=== PATIENT | male | born 1955 | race American Indian/Alaskan Native ===

== ENCOUNTER → 2017-11-19 | Outpatient (CLI) | payer OTHER ==
--- NOTE | 2017-11-19 16:00 | MR ---
EXAMINATION TYPE: MR nishi/sis wo con DATE OF EXAM: 11/19/2017 COMPARISON: 05/07/2015 HISTORY: Neck and Low Back Pain TECHNIQUE: T1 and T2 axial and sagittal images of the lumbar spine are submitted. FINDINGS: There is no abnormal signal seen within the visualized spinal cord or paraspinal soft tissu es. At T12-L1 there is moderate degenerative disc disease. There is facet arthropathy. Mild bilateral for aminal encroachment. There is no canal stenosis or focal herniation. At L1-2 there is degenerative disc disease with hypertrophic change of the facets. Circumferential di sc bulging and mild bilateral foraminal encroachment appears stable. At L2-3 there is degenerative disc disease with more central and right paracentral broad-based disc b ulging. This is similar appearance to the prior exam with moderate effacement of thecal sac and mild central stenosis. Facet arthropathy is noted and there is mild bilateral foraminal encroachment. At L3-4 there is moderate degenerative disc disease with diffuse disc bulging, ligamentum flavum hype rtrophy and facet arthropathy result in moderate canal stenosis and bilateral foraminal encroachment. At L4-5 there is degenerative disc disease with broad-based central disc herniation, facet arthropath y and ligamentum flavum hypertrophy resulting in severe central stenosis which is similar to the prio r exam. There is severe bilateral foraminal encroachment greater on the left. At L5-S1 there is advanced facet arthropathy. There is no canal stenosis or disc herniation. Neural f oramina remain patent. Mild disc desiccation. IMPRESSION: 1. Multilevel degenerative disc disease and facet arthropathy resulting in multilevel canal stenosis with the most marked findings at L4-L5 resulting in severe foraminal encroachment and central stenosi s. Findings also result in multilevel foraminal encroachment. Findings are similar to the prior exam. EXAMINATION TYPE: MR almodovar/sis wo con DATE OF EXAM: 11/19/2017 COMPARISON: NONE HISTORY: Neck and Low Back Pain TECHNIQUE: T1 sagittal and coronal, T2 sagittal, and gradient echo axial views of the cervical spine are submitted. FINDINGS: Exam severely limited due to motion artifact. The cranial cervical junction is preserved. A rtifact limits assessment of the spinal cord. At C2-3 there is degenerative disc disease and facet ar thropathy greater on the left with moderate to severe left-sided foraminal encroachment. No significa nt right-sided foraminal encroachment. No disc herniation or canal stenosis. At C3-4 there is ligamentum flavum hypertrophy with posterior spondylosis and uncovertebral joint hyp ertrophy. Disc capped by spur noted and there is facet arthropathy with moderate to severe bilateral foraminal encroachment and mild central stenosis. At C4-5 there is degenerative disc disease with bilateral advanced facet arthropathy greater on the l eft. Cervical spondylosis and uncovertebral joint hypertrophy contribute to moderate to severe bilate ral foraminal encroachment. Very mild central disc bulging capped by spur with mild effacement of the richa sac but no central stenosis. At C5-6 there is severe degenerative disc disease with central disc bulging capped by spur. Uncoverte bral joint hypertrophy and facet arthropathy with moderate to severe bilateral foraminal encroachment and moderate central stenosis. At C6-7 there is severe degenerative disc disease with posterior spondylosis. Uncovertebral joint hyp ertrophy and facet arthropathy contribute to significant bilateral foraminal encroachment. Due to mot ion artifact assessment for canal stenosis is limited. At C7-T1 there is there is degenerative disc disease. Motion artifact particularly limits this level on the axial images. No obvious central stenosis. Assessment for herniation limited. Slight anterolis thesis of C7 on T1 noted on the sagittal images. Facet arthropathy noted and suspected foraminal encr oachment. IMPRESSION: 1. Exam limited due to motion artifact demonstrates multilevel degenerative disc disease and advance d facet arthropathy with foraminal encroachment virtually all levels as discussed above. 2. Disc bulging capped by spur and posterior spondylosis particularly noted at C3-4, C6-C7 and C5-C6. 3. Assessment spinal cord for abnormal signal limited due to motion artifact. No definite area of abn ormal signal seen given the limitation of the exam.
== END | disposition home or self-care (01) ==
LOC: RADMRIMAIN 14:49
PROVIDERS: ATTEND Orthopaedic Surgery Orthopaedic Surgery of the Spine
DX: M48.061 Spinal stenosis, lumbar region without neurogenic claudication (principal); M51.17 Intervertebral disc disorders with radiculopathy, lumbosacral region; M46.97 Unspecified inflammatory spondylopathy, lumbosacral region; M48.02 Spinal stenosis, cervical region; M50.13 Cervical disc disorder with radiculopathy, cervicothoracic region; M43.13 Spondylolisthesis, cervicothoracic region; M47.22 Other spondylosis with radiculopathy, cervical region; M46.93 Unspecified inflammatory spondylopathy, cervicothoracic region; F17.299 Nicotine dependence, other tobacco product, with unspecified nicotine-induced disorders
CPT/HCPCS: 72141; 72148

== ENCOUNTER → 2022-02-21 | Outpatient (CLI) | payer MEDICARE, OTHER ==
--- NOTE | 2022-02-21 10:39 | MR ---
EXAMINATION TYPE: MR Prostate wo/w con DATE OF EXAM: 02/21/2022 COMPARISON: None. IMAGE QUALITY: Good. INDICATION: Elevated PSA. No biopsy. PSA: 5.00 ng/ml on January 16, 2022 increased from 4.5 on October 24, 2021 and 3.5 on January 05, 2020 Recent Biopsy and Date: None Pathology Report (If Applicable): n/a TECHNIQUE: Examination was performed using a 3T MRI without an endorectal coil. Multiparametric imaging was perf ormed with T2 mutliplanar sequences, axial diffusion weighted imaging and dynamic contrast enhanced i maging, utilizing 10 mL intravenous Gadavist gadolinium contrast. FINDINGS: PROSTATE VOLUME: 4.3 cm SI x 3.4 cm AP x 5.3 cm LR Vol= 40.6 cc PSA DENSITY: 0.12 ng/ml/cc Predicted PSA equals 4.82. Peripheral zone has areas of indistinct T2 hypointensity bilaterally greatest towards the base. No ar eas of diminished signal on ADC mapping identified. Central and transitional zone show overall hetero geneity, no definitive moderate to markedly T2 hypointense areas identified. T1-weighted images show no suspicious hyper intense material or blood product. Seminal vesicles are poorly marginated. Urinary bladder shows mild trabeculation and mild wall thicke yosi. No suspicious bowel dilatation. Some diminished T1 and increased T2 signal in the superior medi al right femoral head raises concern for avascular necrosis, correlate clinically. Advanced axial randal nt space loss at this level is present more prominent than opposite left hip joint. There are small-t o-moderate size bilateral hip joint effusions noted. IMPRESSION: A focus of clinically significant cancer is not identified. Highest Assessment Category: 2 MRI Stage: T0 N0 M0 based on review of pelvic images. False negative rates for MRI range from 5-20% depending on risk profile. Assessment Categories: 1 ? Very low (clinically significant cancer is highly unlikely to be present) 2 ? Low (clinically significant cancer is unlikely to be present) 3 ? Intermediate (the presence of clinically significant cancer is equivocal) 4 ? High (clinically significant cancer is likely to be present) 5 ? Very high (clinically significant cancer is highly likely to be present) Locations: PZ = peripheral zone; TZ = transition zone CZ=central zone; AFS = anterior fibromuscular stroma a=anterior half (i.e. PZa=anterior half of peripheral zone); pm= posterior medial (i.e PZpm) pl = postero-lateral (i.e. PZpl); p = posterior half (i.e. TZp) ; a = anterior half (i.e TZa or P Za) Other: N=no or no; E= equivocal; Y=yes EPE = extraprostatic extension NVB = neurovascular bundle NA = not applicable/not available
== END | disposition home or self-care (01) ==
LOC: RADMRIMAIN 09:11
PROVIDERS: ATTEND Urology
DX: R97.20 Elevated prostate specific antigen [PSA] (principal)
CPT/HCPCS: 72197; A9585